=== PATIENT | male | born 1975 | race Caucasian/White ===

== ENCOUNTER 2016-12-22 22:10 | Emergency (ER) | payer OTHER ==
[~2016-12-22] VITALS: Ht 177.8 cm; Wt 84.5 kg
[~2016-12-22 22:10] MED LIST: ALEVE220 MG PO; ANAPROX DS550 M1 PO; ARTANE5 MG PO; Buspar PO; CATAPRES0.1 MG PO; COLACE100 MG PO; HALDOL5 MG PO; NAPROSYN500 MG PO; Neurontin PO; PERCOCET 5/31 TABLET PO; TRILEPTAL75 MG PO; ZOFRAN4 MG PO
[2016-12-22 23:39] LABS: BILIRUBIN NEGATIVE; BLOOD NEGATIVE; COLOR YELLOW ((YELLOW)); GLUCOSE (STRIP) NEGATIVE; KETONES NEGATIVE; LEUKOCYTES NEGATIVE; NITRITE NEGATIVE; PROTEIN (STRIP) 30
[2016-12-22 23:40] LABS: ADD MIUA? NO; UCUL ADDED? NO
[2016-12-23] MEDS ORDERED: TRAMADOL HCL50 MG PO (00:49)
[2016-12-23] MEDS ORDERED: NAPROSYN500 MG PO (00:49)
[2016-12-23 01:27] VITALS: BP 121/78
== END 2016-12-23 01:28 | disposition home or self-care (01) ==
LOC: EME 22:10
PROVIDERS: Physician Assistant
DX: S39.011A Strain of muscle, fascia and tendon of abdomen, initial encounter (principal); X50.9XXA Other and unspecified overexertion or strenuous movements or postures, initial encounter; F31.9 Bipolar disorder, unspecified; F90.9 Attention-deficit hyperactivity disorder, unspecified type; F25.9 Schizoaffective disorder, unspecified; F41.9 Anxiety disorder, unspecified; Z87.891 Personal history of nicotine dependence
CPT/HCPCS: 76870; 76882; 81003; 99281; 99283; J1885